=== PATIENT | female | born 1955 | race Hispanic/Latino ===

== ENCOUNTER 2017-08-29 10:30 | Outpatient (AMBR) | payer MEDICAID, SELFPAY ==
--- NOTE | 2017-07-31 11:49 | PT.OIERPT ---
PT OP Initial Eval Patient Information Pediatric or Adult Patient: Adult PT >13 Visit Reasons: LEFT KNEE Medical Diagnosis: S/P L knee arthroscopy Treatment Dx #1: muscle weakness Treatment Dx #2: L knee pain Start of Care: 07/31/17 Date of Onset: 06/30/2017 Initial Assessment Subjective 62 y/o female who had L knee problem. based on the MRI that was on 04/25/2017 she had tear of the posterior horn medial meniscus and extensive lateral meniscus tears. she had knee arthroscopy done last Jun. and after the operation, Dr. Gómez mentioned to her that she had a thinning on the cartilage and that she will need Knee replacement eventually. For now she was referred to PT for S/P L knee arthroscopy. 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 patient has pain on the L knee constantly and she takes Vicodin TID, she has difficulty sleeping due to pain. She also has difficulty ambulation and unsteady balance. Objective (+) tenderness on the L knee Knee pain upon movement PS 8/10 at rest 4/5 L knee flexion 105 deg L knee extension WNL L quads ms strength 3/5 L hamstring ms strength 3/5 (+) antalgic gait L Knee circumference measurement 1 above patella 42cm midpatella 36cm 2 below patella 33 cm (+) crepitus on L knee during flexion and extension. Assessment patient will benefit from skilled PT services due to patient is S/P L knee arthroscopy. patient has difficulty amb with antalgic gait. ms weakness, pain on the L knee. (+) tenderness with mild swelling. No redness noted upon visual assessment. Short Term and [facility] Clinical Services Goals 1. To increase ms strength on hamstrings and quadriceps ms to 4/5 2. To decrease pain on the L knee upon movement to 4-5/10 3. Be I with HEP 4. To be able to ambulate and decrease antalgic gait 5. decrease swelling on L knee 6. Increase flexion of the Lknee to 130 deg Treatment Plan 1. Thera ex 2. Manual Tx 3. Modalities (HMP, US, Estim) 4. Gait training. Frequency and Duration 2x/wk x 8 weeks Certification Dates: 07/31/2017 to 10/31/2017
--- NOTE | 2017-07-31 12:15 | PTNOTE_ITS ---
PT OP Initial Eval Patient Information Pediatric or Adult Patient: Adult PT >13 Visit Reasons: LEFT KNEE Medical Diagnosis: S/P L knee arthroscopy Treatment Dx #1: muscle weakness Treatment Dx #2: L knee pain Start of Care: 07/31/17 Date of Onset: 06/30/2017 Initial Assessment Subjective 62 y/o female who had L knee problem. based on the MRI that was on 04/25/2017 she had tear of the posterior horn medial meniscus and extensive lateral meniscus tears. she had knee arthroscopy done last Jun. and after the operation , Dr. Gómez mentioned to her that she had a thinning on the cartilage and that she will need Knee replacement eventually. For now she was referred to PT for S/ P L knee arthroscopy. 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 patient has pain on the L knee constantly and she takes Vicodin TID, she has difficulty sleeping due to pain. She also has difficulty ambulation and unsteady balance. Objective (+) tenderness on the L knee Knee pain upon movement PS 8/10 at rest 4/5 L knee flexion 105 deg L knee extension WNL L quads ms strength 3/5 L hamstring ms strength 3/5 (+) antalgic gait L Knee circumference measurement 1 above patella 42cm midpatella 36cm 2 below patella 33 cm (+) crepitus on L knee during flexion and extension. Assessment patient will benefit from skilled PT services due to patient is S/P L knee arthroscopy. patient has difficulty amb with antalgic gait. ms weakness, pain on the L knee. (+) tenderness with mild swelling. No redness noted upon visual assessment. Short Term and Nursing Home Goals 1. To increase ms strength on hamstrings and quadriceps ms to 4/5 2. To decrease pain on the L knee upon movement to 4-5/10 3. Be I with HEP 4. To be able to ambulate and decrease antalgic gait 5. decrease swelling on L knee 6. Increase flexion of the Lknee to 130 deg Treatment Plan 1. Thera ex 2. Manual Tx 3. Modalities (HMP, US, Estim) 4. Gait training. Frequency and Duration 2x/wk x 8 weeks Certification Dates: 07/31/2017 to 10/31/2017
--- NOTE | 2017-08-07 15:23 | PT.ODAYNRPT ---
PT Outpatient Daily Note Date of Service: August 07, 2017 OP Daily Note Visit Reasons: LEFT KNEE Outpatient Physical Therapy Treatment Date: 08/07/17 Subjective: pt was in pain upon visit but tolerable. Objective: see flow sheet. Assessment: pt did well with exercises and was even able to get in and out of the TG machine with no difficulties. corrected pt's foot placement during squats as she tends to keep knees medially. pt was able to maintain good posture during standing exercises using resistance bands. good quad activation with no compensation noted. Plan: continue POC per PT. Length of Time (minutes) of Treatment: 30 Minutes Office Procedures PT Procedures PT Date of Service: 08/07/17 Therapeutic Exercise 30 minutes: Yes PT Procedures PT Date of Service: 07/31/17 OP PT Eval Mod Complex 30 minutes: Yes
--- NOTE | 2017-08-11 14:30 | PT.ODAYNRPT ---
PT Outpatient Daily Note Date of Service: August 11, 2017 OP Daily Note Visit Reasons: LEFT KNEE Outpatient Physical Therapy Treatment Date: 08/11/17 Subjective: pt doing well today with soreness from last visit. Objective: see flow sheet. Assessment: noted pt's L knee is still swollen but refused ice pack as she will use it at home. pt can get in and out of the TG machine with no assistance nor difficulties. no hyper extension noted with squats nor medial collapse of the knees. pt overall did well with no c/o increased pain or discomfort post ther ex. Plan: continue POC per PT. Length of Time (minutes) of Treatment: 30 Minutes Office Procedures PT Procedures PT Date of Service: 08/07/17 Therapeutic Exercise 30 minutes: Yes PT Procedures PT Date of Service: 07/31/17 OP PT Eval Mod Complex 30 minutes: Yes PT Procedures PT Date of Service: 08/11/17 Therapeutic Exercise 30 minutes: Yes
--- NOTE | 2017-08-18 16:51 | PT.ODAYNRPT ---
PT Outpatient Daily Note Date of Service: August 18, 2017 OP Daily Note Visit Reasons: LEFT KNEE Outpatient Physical Therapy Treatment Date: 08/18/17 Subjective: pt did not want to do TG squats today due to increase in pain from the cold weather. Objective: see flow sheet. Assessment: pt was more fatigue today after each exercise and c/o discomfort due to pain but was able to complete all reps and sets. good quad activation with LAQs and good sitting posture with no back sway to compensate. advised pt to ice at home if needed, pt understood. Plan: continue POC per PT. Length of Time (minutes) of Treatment: 30 Minutes Office Procedures PT Procedures PT Date of Service: 08/07/17 Therapeutic Exercise 30 minutes: Yes PT Procedures PT Date of Service: 07/31/17 OP PT Eval Mod Complex 30 minutes: Yes PT Procedures PT Date of Service: 08/11/17 Therapeutic Exercise 30 minutes: Yes PT Procedures PT Date of Service: 08/18/17 Therapeutic Exercise 30 minutes: Yes
--- NOTE | 2017-08-25 11:21 | PT.ODAYNRPT ---
PT Outpatient Daily Note Date of Service: August 25, 2017 OP Daily Note Pediatric or Adult Patient: Adult PT >13 Visit Reasons: LEFT KNEE Outpatient Physical Therapy Treatment Date: 08/25/17 Subjective: I have a body ache , maybe from catching up with our dog yesterday. Objective: Pls see FS Assessment: patient were given strengthening ex on LLE focusing more on knee flexion exercise and to improve joint mobility. patient has pain on the L knee PS 10/12. more on the lateral part of the knee. Plan: to continue POC toward goals. Pain Present Currently: Yes (10/12) Length of Time (minutes) of Treatment: 30 Minutes Office Procedures PT Procedures PT Date of Service: 08/07/17 Therapeutic Exercise 30 minutes: Yes PT Procedures PT Date of Service: 07/31/17 OP PT Eval Mod Complex 30 minutes: Yes PT Procedures PT Date of Service: 08/11/17 Therapeutic Exercise 30 minutes: Yes PT Procedures PT Date of Service: 08/18/17 Therapeutic Exercise 30 minutes: Yes PT Procedures PT Date of Service: 08/25/17 Therapeutic Exercise 30 minutes: Yes
--- NOTE | 2017-08-29 12:59 | PT.ODAYNRPT ---
PT Outpatient Daily Note Date of Service: August 29, 2017 OP Daily Note Visit Reasons: LEFT KNEE Outpatient Physical Therapy Treatment Date: 08/29/17 Subjective: pt reported feelign sore from last session. Objective: see flow sheet. Assessment: changed the exercise of stepping up onto the step with only single leg of the LLE in which pt did well on. she maintained good posture and no compensations. no LOB noted throughout exercises. pt has no complaints while using resistance with some standing exercises. overall pt did well and progressing along the way. refused ice pack as she will use it at home instead. Plan: continue POC per PT. Length of Time (minutes) of Treatment: 30 Minutes Office Procedures PT Procedures PT Date of Service: 08/07/17 Therapeutic Exercise 30 minutes: Yes PT Procedures PT Date of Service: 07/31/17 OP PT Eval Mod Complex 30 minutes: Yes PT Procedures PT Date of Service: 08/11/17 Therapeutic Exercise 30 minutes: Yes PT Procedures PT Date of Service: 08/18/17 Therapeutic Exercise 30 minutes: Yes PT Procedures PT Date of Service: 08/25/17 Therapeutic Exercise 30 minutes: Yes PT Procedures PT Date of Service: 08/29/17 Therapeutic Exercise 30 minutes: Yes
== END 2017-08-29 11:30 | disposition home or self-care (01) ==
PROVIDERS: PCP Family Medicine; Referring Provider Family Medicine; Visit Provider Orthopaedic Surgery
DX: I10 Essential (primary) hypertension (principal)
CPT/HCPCS: 97110; 97162